=== PATIENT | female | born 1950 | race Caucasian/White ===

== ENCOUNTER 2024-09-12 09:55 | Outpatient (RCR) | payer OTHER, SELFPAY ==
[2024-08-31 14:15] VITALS: BP 128/83
[2024-08-31] MEDS: VENOFER 110 MG IV (14:24)
[2024-08-31 15:32] VITALS: BP 143/67
[2024-09-06 13:57] VITALS: BP 142/71
[2024-09-06] MEDS: VENOFER 110 MG IV (14:04)
[2024-09-06 15:16] VITALS: BP 133/80
[2024-09-12 10:19] VITALS: BP 155/59
[2024-09-12] MEDS: VENOFER 110 MG IV (10:23)
[2024-09-12 11:31] VITALS: BP 123/57
== END 2024-09-15 08:16 | disposition home or self-care (01) ==
LOC: OID 09:55
PROVIDERS: ATTENDING PHYSICIAN Nurse Practitioner
DX: D50.9 Iron deficiency anemia, unspecified (principal); R06.02 Shortness of breath; R19.5 Other fecal abnormalities; R06.09 Other forms of dyspnea; R53.83 Other fatigue
CPT/HCPCS: 36415; 96365; J1756

== ENCOUNTER 2024-09-19 06:18 | Day surgery (SDC) | payer OTHER, SELFPAY | END 2024-09-19 14:24 | disposition home or self-care (01) | LOC: GI 06:18 | PROVIDERS: ATTENDING PHYSICIAN Surgery | DX: D50.9 Iron deficiency anemia, unspecified (principal); Z86.0100 Personal history of colon polyps, unspecified; K57.30 Diverticulosis of large intestine without perforation or abscess without bleeding | CPT/HCPCS: G0105 ==

== ENCOUNTER 2024-09-28 13:36 | Outpatient (RCR) | payer OTHER, SELFPAY ==
[2024-09-21 13:55] VITALS: BP 138/82
[2024-09-21] MEDS: VENOFER 110 MG IV (14:17)
[2024-09-21 15:29] VITALS: BP 142/97
[2024-09-28 13:45] VITALS: BP 109/87
[2024-09-28] MEDS: VENOFER 110 MG IV (13:57)
[2024-09-28 15:02] VITALS: BP 140/70
== END 2024-09-29 09:19 | disposition home or self-care (01) ==
LOC: OID 13:36
PROVIDERS: ATTENDING PHYSICIAN Nurse Practitioner
DX: D50.9 Iron deficiency anemia, unspecified (principal); D50.0 Iron deficiency anemia secondary to blood loss (chronic) (principal); R53.83 Other fatigue; R19.5 Other fecal abnormalities; R06.02 Shortness of breath
CPT/HCPCS: 96365; J1756

== ENCOUNTER → 2024-10-11 10:36 | Outpatient (REF) | payer OTHER, SELFPAY | LOC: HWWDC 10:36 | PROVIDERS: ATTENDING PHYSICIAN Nurse Practitioner | DX: Z12.31 Encounter for screening mammogram for malignant neoplasm of breast (principal) | CPT/HCPCS: 77063; 77067 ==

== ENCOUNTER → 2024-10-18 14:50 | Outpatient (REF) | payer OTHER, SELFPAY | LOC: RCS 14:50 | PROVIDERS: ATTENDING PHYSICIAN Nurse Practitioner | DX: R06.02 Shortness of breath (principal) | CPT/HCPCS: 93306 ==

== ENCOUNTER 2024-10-26 06:18 | Day surgery (SDC) | payer OTHER, SELFPAY | END 2024-10-26 15:27 | disposition home or self-care (01) | LOC: GI 06:18 | PROVIDERS: ATTENDING PHYSICIAN Internal Medicine Gastroenterology | DX: D50.9 Iron deficiency anemia, unspecified (principal); K44.9 Diaphragmatic hernia without obstruction or gangrene; K31.89 Other diseases of stomach and duodenum; K29.50 Unspecified chronic gastritis without bleeding; K31.A0 Gastric intestinal metaplasia, unspecified | CPT/HCPCS: 43239; 88305; 88342 ==

== ENCOUNTER → 2025-03-16 11:29 | Outpatient (REF) | payer OTHER, SELFPAY | LOC: DHSLP 11:29 | PROVIDERS: ATTENDING PHYSICIAN Nurse Practitioner; FAMILY PHYSICIAN Internal Medicine | DX: G47.33 Obstructive sleep apnea (adult) (pediatric) (principal) | CPT/HCPCS: 95800 ==